=== PATIENT | male | born 1940 | race Caucasian/White ===

== ENCOUNTER 2022-07-08 10:33 | Emergency (ER) | payer MEDICARE ==
[~2022-07-08] VITALS: Ht 175.3 cm; Wt 99.8 kg
[2022-07-08] MEDS ORDERED: KETOROLAC 30MG VIAL (30MG/ML) IM ONE (11:00)
[2022-07-08] MEDS ORDERED: DICL20GE TP (11:23)
[2022-07-08 11:43] VITALS: BP 148/62
== END 2022-07-08 11:51 | disposition home or self-care (01) ==
LOC: EDH 10:33
DX: S93.402A Sprain of unspecified ligament of left ankle, initial encounter (principal); X58.XXXA Exposure to other specified factors, initial encounter; Y93.89 Activity, other specified; Y92.89 Other specified places as the place of occurrence of the external cause; Y99.8 Other external cause status
CPT/HCPCS: 99283; 29515; 73600; 96372; J1885

== ENCOUNTER 2023-06-21 16:57 | Emergency (ER) | payer MEDICARE ==
[~2023-06-21] VITALS: Ht 175.3 cm; Wt 102.1 kg
[~2023-06-21 16:57] MED LIST: DICL20GE TP
[2023-06-21 19:05] LABS: INFLUENZA TYPE A Negative For Type A (NEGATIVE); INFLUENZA TYPE B Negative For Type B (NEGATIVE)
[2023-06-21 19:08] LABS: COVID19 (SARS ANTIGEN RAPID) POSITIVE FOR SARS AG (NEGATIVE)
[2023-06-21 19:17] VITALS: BP 155/66; PULSE 82; RESP 18; O2SAT 98
[2023-06-21] MEDS ORDERED: ALBUHFA IH (19:19)
[2023-06-21] MEDS ORDERED: BENZ-39 PO (19:19)
== END 2023-06-21 19:20 | disposition home or self-care (01) ==
LOC: EDH 16:57
DX: U07.1 COVID-19 (principal); Z98.890 Other specified postprocedural states; Z88.2 Allergy status to sulfonamides
CPT/HCPCS: 71045; 87426; 87804

== ENCOUNTER 2023-06-23 13:26 | Emergency (ER) | payer MEDICARE ==
[~2023-06-23] VITALS: Ht 175.3 cm; Wt 101.2 kg
[~2023-06-23 13:26] MED LIST changes: +ALBUHFA IH; +BENZ-39 PO
[2023-06-23 14:04] LABS: BASOPHILS # (AUTO) 0.01 K/uL (0.00-0.20); BASOPHILS % (AUTO) 0.2 % (0.0-5.0); HEMATOCRIT 43.5 % (42-54); IMMATURE GRANULOCYTE ABSOLUTE 0.02 K/uL (0-1); LYMPHOCYTES % (AUTO) 15.8 % (21.0-51.0); MEAN CORPUSCULAR HEMOGLOBIN 32.5 pg (27.0-33.0); MEAN CORPUSCULAR VOLUME 95.4 fL (79-99); MONOCYTES % (AUTO) 15.3 % (3.0-13.0); NEUTROPHILS # (AUTO) 4.3 K/uL (1.8-7.7); NEUTROPHILS % (AUTO) 68.4 % (40.0-77.0); PLATELET COUNT (AUTO) 161 K/uL (130-400); RED BLOOD CELL COUNT(AUTO) 4.56 MIL/uL (4.50-6.20); RED CELL DISTRIBUTION WIDTH 13.2 % (11.0-15.5); WHITE BLOOD COUNT (AUTO) 6.2 K/uL (4.8-10.8)
[2023-06-23 14:09] LABS: CREATININE 1.1 mg/dL (0.5-1.5)
[2023-06-23] MEDS ORDERED: COMPOUND IV REFRIGERATED 1 EACH IVSOLN MISC PRN (14:30)
[2023-06-23 14:31] LABS: ALBUMIN 3.8 g/dL (3.5-5.0); BILIRUBIN,DIRECT 0.2 mg/dL (0.0-0.3); BILIRUBIN,TOTAL 0.9 mg/dL (0.2-1.0); TOTAL PROTEIN, SERUM 7.5 g/dL (6.0-8.3)
[2023-06-23] MEDS: PANTOPRAZOLE 40 MG/VIAL IVP ONE (14:37)
[2023-06-23] MEDS: PANTOPRAZOLE 40MG INJ 80 MG in 0.9%NACL 100ML 100 ML IVP SCH (14:38)
[2023-06-23 15:52] VITALS: BP 142/65; PULSE 76; RESP 20; O2SAT 97
[2023-06-23 16:16] LABS: APPEARANCE,URINE CLEAR (CLEAR); BILIRUBIN,URINE NEGATIVE (NEGATIVE); COLOR,URINE YELLOW (YELLOW); GLUCOSE, URINE (UA) NEGATIVE (NEGATIVE); KETONES,URINE 5 mg/dL (NEGATIVE); LEUKOCYTE ESTERASE ,URINE NEGATIVE Leu/uL (NEGATIVE); NITRATE,URINE NEGATIVE (NEGATIVE); OCCULT BLOOD,URINE SMALL (NEGATIVE); PROTEIN,URINE 20 mg/dL (NEGATIVE); UROBILINOGEN,URINE 0.2 mg/dL (0.2-1.0)
[2023-06-23 16:23] LABS: ADD UA MICROSCOPIC YES
[2023-06-23 16:25] LABS: BACTERIA,URINE RARE /HPF (None Seen); MUCUS,URINE RARE LPF (None Seen); WBC,URINE 0-1 /HPF (0-1); YEAST,URINE BUDDING RARE /HPF (None Seen)
[2023-06-23] MEDS: HYDROXYZINE 50MG VIAL 50 MG/ML VIAL IM SCH (17:00)
[2023-06-23] MEDS ORDERED: PHENOL 177 ML BOTTLE PO PRN (17:30)
== END 2023-06-23 17:23 | disposition left against medical advice (07) ==
LOC: EDH 13:26
DX: K92.2 Gastrointestinal hemorrhage, unspecified (principal); Z79.899 Other long term (current) drug therapy; Z98.890 Other specified postprocedural states; Z88.2 Allergy status to sulfonamides
CPT/HCPCS: 99285; 96374; 71045; 82270; 80076; 80048; 83690; 85025; 86850; 86900; 86901; 87040 ×2; 83605; 81001; 36415; 93005; J3410; C9113 ×2